=== PATIENT | male | born 1955 | race Caucasian/White ===

== ENCOUNTER → 2016-03-29 08:36 | Outpatient (CLI) | payer BC ==
[2015-06-08 08:02] VITALS: BMI 34.7
[~2016-03-29 08:36] MED LIST: ADVAIR 250/501 DISK INH; FLUTICASONE PRO16 GM NASAL; HYDROCODONE-APA1 TAB PO; KOMBIGLYZE XR1 EACH PO; PEPCID20 MG PO; ZOCOR80 MG PO
== END | disposition home or self-care (01) ==
LOC: D.RT 08:36
DX: J44.9 Chronic obstructive pulmonary disease, unspecified (principal)

== ENCOUNTER → 2016-09-14 11:31 | Outpatient (CLI) | payer BC ==
[2015-06-08 08:02] VITALS: BMI 34.7
== END | disposition home or self-care (01) ==
LOC: D.LAB 08:00
DX: J44.9 Chronic obstructive pulmonary disease, unspecified (principal)

== ENCOUNTER → 2018-01-09 13:09 | Outpatient (CLI) | payer MEDICARE ==
[2015-06-08 08:02] VITALS: BMI 34.7
== END | disposition home or self-care (01) ==
LOC: D.MRI 13:00
DX: M25.531 Pain in right wrist (principal)

== ENCOUNTER 2020-05-18 03:12 | Emergency (ER) | payer MEDICARE ==
[~2020-05-18] VITALS: Ht 177.8 cm; Wt 102.3 kg
[2020-05-18 03:14] VITALS: Ht 177.8 cm; Wt 102.3 kg
[2020-05-18 03:34] LABS: BASOPHILS 0.2 % (0-2); EOSINOPHILS 1.3 % (0-7); HEMATOCRIT 47.7 % (42.0-54.0); HEMOGLOBIN 16.7 g/dL (13.5-17.5); IMMATURE GRANULOCYTES 0.7 % (0-5); LYMPHOCYTE ABS# 1.77 10x3/uL (1.32-3.57); LYMPHOCYTES 10.7 % (15-50); MCH 31.7 pg (26.0-34.0); MCV 90.7 fL (80.0-100.0); MEAN PLATELET VOLUME 9.7 fL (7.4-10.4); MONOCYTES 5.5 % (2-11); NEUTROPHIL ABS# 13.48 10x3/uL (1.78-5.38); NEUTROPHILS 81.6 % (40-80); RBC 5.26 10x6/uL (4.20-6.10); RDW 13.5 % (11.5-14.5); WBC 16.5 10x3/uL (4.8-10.8)
[2020-05-18 03:38] LABS: PLATELET COUNT 196 10x3/uL (130-400)
[2020-05-18 03:42] LABS: ANION GAP 13.2 mmol/L (8-16); CALCIUM 8.6 mg/dL (8.5-10.1); CARBON DIOXIDE 25.7 mmol/L (21.0-32.0); CREATININE - SERUM 1.1 mg/dL (0.6-1.3); POTASSIUM - SERUM 3.9 mmol/L (3.5-5.1)
[2020-05-18 03:47] LABS: BILIRUBIN - TOTAL 0.97 mg/dL (0.2-1.3); PROTEIN - SERUM 7.4 g/dL (6.4-8.2)
[2020-05-18] MEDS ORDERED: CLEOCIN HCL300 MG PO (05:55)
[2020-05-18] MEDS ORDERED: STERAPRED DS 1010 MG PO (05:55)
[2020-05-18 06:47] VITALS: BP 180/90
[2020-05-18 07:46] LABS: ERYTHROCYTE SEDIMENTATION RATE 1 mm/hr (0-20)
== END 2020-05-18 06:47 | disposition home or self-care (01) ==
LOC: D.ER 03:12
PROVIDERS: Family Medicine
DX: I77.6 Arteritis, unspecified (principal); J32.9 Chronic sinusitis, unspecified; L27.0 Generalized skin eruption due to drugs and medicaments taken internally; E11.9 Type 2 diabetes mellitus without complications; J45.909 Unspecified asthma, uncomplicated